=== PATIENT | male | born 1965 | race Caucasian/White ===

== ENCOUNTER 2019-09-14 13:58 | Inpatient (IN) ==
[2019-09-14] MEDS ORDERED: ASPIRIN CHEW 324 MG PO STA (14:13)
[2019-09-14 14:25] LABS: Basophils # (auto) 0.04 K/uL (0-0.2); Basophils % (auto) 0.6 %; Eosinophils # (auto) 0.08 K/uL (0-0.5); Eosinophils % (auto) 1.2 %; Hematocrit (blood only) 42.8 % (42-52); Hemoglobin 15.1 g/dL (14.0-18.0); Immature Granulocytes # (auto) 0.01 K/uL (0.00-0.02); Immature Granulocytes % (auto) 0.1 %; Lymphocytes # (auto) 2.11 K/uL (1.2-3.4); Lymphocytes % (auto) 31.3 %; Mean Corpuscular Hemoglobin 29.4 pg (25-34); Mean Corpuscular Hgb Conc 35.3 g/dL (32-36); Mean Corpuscular Volume 83.4 fL (80-100); Mean Platelet Volume 10.3 fL (7.4-10.4); Monocytes # (auto) 0.62 K/uL (0.11-0.59); Monocytes % (auto) 9.2 %; Neutrophils # (auto) 3.89 K/uL (1.4-6.5); Neutrophils % (auto) 57.6 %; Platelet Count 210 K/uL (130-400); RDW Coefficient of Variation 12.7 % (11.5-14.5); RDW Standard Deviation 38.4 fL (36.4-46.3); Red Blood Count 5.13 M/uL (4.7-6.1); White Blood Count 6.75 K/uL (4.8-10.8)
--- NOTE | 2019-09-14 14:29 | XRay Report ---
XR chest 1V portable CLINICAL HISTORY: Chest pain. COMPARISON STUDY: No previous studies for comparison. FINDINGS: Lung volumes are normal. There is no consolidation to suggest pneumonia. Minimal linear lef t basilar opacity suggests atelectasis. There is no pneumothorax or pleural effusion. Cardiac size is normal. Mediastinal contours are normal. There is no evidence for pulmonary edema. IMPRESSION: No acute cardiopulmonary findings. ACT 112: Negative or not required by law. Electronically signed by: Joseph Mcdonald M.D. 09/14/2019 2:28 PM
[2019-09-14 14:41] LABS: Alanine Aminotransferase 83 U/L (12-78); Albumin Level 4.3 gm/dl (3.4-5.0); Aspartate Aminotransferase 32 U/L (15-37); BUN Creatinine Ratio 14.3 (10-20); Blood Urea Nitrogen 14 mg/dl (7-18); Carbon Dioxide 23 mmol/L (21-32); Chloride 107 mmol/L (98-107); Creatinine Clr Calc Pharmacy 108.4 ml/min; Est GFR (African American) 101.1; Est GFR (Non-African American) 87.2; Glucose 104 mg/dl (70-99); INR 1.1 (0.9-1.1); Lipase 128 U/L (73-393); Potassium 3.6 mmol/L (3.5-5.1); Prothrombin Time 11.2 Seconds (9.0-12.0); Sodium 138 mmol/L (136-145)
--- NOTE | 2019-09-14 14:43 | Emergency Department Note ---
History of Present Illness General Chief complaint: Cardiac Assessment Stated complaint: ADNORMAL EKG Time Seen by Provider: 09/14/19 14:12 History of Present Illness Maximum Pain Intensity: 1 54-year-old male who presents to the emergency department with intermittent lower central chest discomfort that started approximately 11 to 12 days ago. The patient reports a significant history of reflux, and reported that his symptoms started by doing some heavy labor at home. The patient reports that the pain felt just like his typical reflux discomfort, with a burning sensation up through the center of the chest. The patient reports that he can usually drink water to suppress the acid. The patient was able to catch some relief while doing this. He denied any nausea, diaphoresis or shortness of breath during these episodes. Patient reports that he then had several days of no dis comfort, then the pain came back again 4 days ago while sitting in a chair at work. The patient reports that a coworker gave him some Prilosec which helped again with his discomfort, but has had intermittent similar pain since that time. The patient went to the [facility] office, but noticed a sign on the front door that he must wear a mask, so he went home. Yesterday he went to [place] to go out to lunch with his father. After lunch, he then went for a walk, and noticed similar central chest discomfort. He reported that the pain went away after the walk. He then went back to the office again today where an ECG was performed and was abnormal. The patient was sent to the emergency department for further evaluation. The patient reports that they did administer aspirin 325 mg in the office. He currently denies any significant discomfort. The patient reports a family history of heart disease with his mother having an PA in her 30s, and terminal grandfather dying of a heart attack. Home Medications Home Medications Medication Instructions Recorded Confirmed Type albuterol sulfate [ProAir HFA] 2 puff INHALATION Q4 PRN 09/14/19 09/14/19 History clindamycin phosphate [Clindagel] 1 applic TOPICAL DAILY PRN 09/14/19 09/14/19 History fluticasone propionate [Flovent 1 puff INHALATION WK 09/14/19 09/14/19 History HFA] ibuprofen 600 mg PO TID PRN 09/14/19 09/14/19 History omeprazole 20 mg PO DAILY 09/14/19 09/14/19 History Allergies Allergy/AdvReac Type Severity Reaction Status Date / Time No Known Allergies Allergy Unverified 09/14/19 15:56 Past Med/Surg History Medical History GERD (gastroesophageal reflux disease) Hyperlipidemia Obesity Surgical History No significant past surgical history Family History Grandfather (Maternal) Myocardial infarction, Onset Age: 50 Mother , 36 PA Myocardial infarction, Onset Age: 36 Social History Preferred Language: Upper Sorbian Communication Ability: Effective Contact Lens Edge Buffer Required: No Beliefs That Will Affect Care: None marital status: Single Current Living Situation: Alone current occupational status: employed Other Information That Helps Us Care for You: No Feels Safe at Home: Yes Safety Concerns: Feels Safe At This Time Smoking Status: Never smoker Hx Alcohol Use: Yes Alcohol Intake Frequency Comment: prior ETOH USE; last used 15 years ago Hx Substance Use: No Review of Systems 10 system review was performed and was negative except for pertinent positives and negatives as indicated in history of present illness Physical Exam Vital Signs Vital Signs - 24 hr 09/14/19 14:04 09/14/19 14:15 09/14/19 14:17 Temperature 37 C Temperature Source Oral Pulse Rate 108 H 89 100 H Pulse Rate [Apical] Pulse Rate from SpO2 Sensor 101 H Pulse Rhythm [Apical] Respiratory Rate 20 18 19 Respiratory Effort / Characteristics Non-Labored Respiratory Depth Normal Respiratory Pattern Regular Blood Pressure 163/99 H 164/87 H Blood Pressure [Right Arm] Blood Pressure Mean 120 121 Blood Pressure Mean [Right Arm] Blood Pressure Position Sitting Pulse Oximetry 97 97 Oxygen Delivery Method Room Air Sepsis Recent Fever Within 48 Hours No Sepsis New/Unexplained Change in Mental Status No Sepsis Action Taken by Nursing No Action Required 09/14/19 14:20 09/14/19 14:30 09/14/19 14:31 Temperature Temperature Source Pulse Rate 93 H 83 89 Pulse Rate [Apical] Pulse Rate from SpO2 Sensor 94 H 83 88 Pulse Rhythm [Apical] Respiratory Rate 23 14 14 Respiratory Effort / Characteristics Respiratory Depth Respiratory Pattern Blood Pressure 167/95 H Blood Pressure [Right Arm] Blood Pressure Mean 128 Blood Pressure Mean [Right Arm] Blood Pressure Position Pulse Oximetry 97 96 96 Oxygen Delivery Method Sepsis Recent Fever Within 48 Hours Sepsis New/Unexplained Change in Mental Status Sepsis Action Taken by Nursing 09/14/19 14:33 09/14/19 14:40 09/14/19 14:50 Temperature Temperature Source Pulse Rate 87 81 Pulse Rate [Apical] 70 Pulse Rate from SpO2 Sensor 87 83 Pulse Rhythm [Apical] Regular Respiratory Rate 18 14 15 Respiratory Effort / Characteristics Non-Labored Spontaneous Respiratory Depth Normal Respiratory Pattern Regular Blood Pressure Blood Pressure [Right Arm] 148/78 H Blood Pressure Mean Blood Pressure Mean [Right Arm] 101 Blood Pressure Position Pulse Oximetry 97 96 97 Oxygen Delivery Method Room Air Sepsis Recent Fever Within 48 Hours Sepsis New/Unexplained Change in Mental Status Sepsis Action Taken by Nursing 09/14/19 15:00 09/14/19 15:10 09/14/19 15:20 Temperature Temperature Source Pulse Rate 85 81 87 Pulse Rate [Apical] Pulse Rate from SpO2 Sensor 84 82 88 Pulse Rhythm [Apical] Respiratory Rate 30 H 17 18 Respiratory Effort / Characteristics Respiratory Depth Respiratory Pattern Blood Pressure 191/109 H Blood Pressure [Right Arm] Blood Pressure Mean 135 Blood Pressure Mean [Right Arm] Blood Pressure Position Pulse Oximetry 97 96 97 Oxygen Delivery Method Sepsis Recent Fever Within 48 Hours Sepsis New/Unexplained Change in Mental Status Sepsis Action Taken by Nursing 09/14/19 15:30 09/14/19 15:32 Temperature Temperature Source Pulse Rate 91 H 96 H Pulse Rate [Apical] Pulse Rate from SpO2 Sensor 96 H Pulse Rhythm [Apical] Respiratory Rate 13 25 H Respiratory Effort / Characteristics Respiratory Depth Respiratory Pattern Blood Pressure 179/92 H Blood Pressure [Right Arm] Blood Pressure Mean 114 Blood Pressure Mean [Right Arm] Blood Pressure Position Pulse Oximetry 98 Oxygen Delivery Method Sepsis Recent Fever Within 48 Hours Sepsis New/Unexplained Change in Mental Status Sepsis Action Taken by Nursing CONSTITUTIONAL: Healthy and well nourished. Patient does not appear in any a cute distress. HEENT: Normocephalic, atraumatic. No scleral icterus or conjunctival injection. NECK: Full active range of motion without discomfort. LYMPHATICS: No cervical chain adenopathy. RESPIRATORY: Clear to auscultation bilaterally with no wheezing, crackles, rhonchi or stridor. CARDIOVASCULAR: Regular rate and rhythm with no murmurs, rubs or gallops. GASTROINTESTINAL: Bowel sounds present in all quadrants. Soft and nontender to palpation without hepatosplenomegaly. MUSCULOSKELETAL: Full range of motion of all joints without discomfort. No peripheral edema. INTEGUMENTARY: No rash or other significant dermatologic conditions noted. HEMATOLOGIC: No ecchymosis or petechiae. PSYCHIATRIC: Positive affect. NEUROLOGIC: No focal neurologic deficits noted. Course Course Patient history and physical exam were performed. Nurse's notes were reviewed. Vital signs were reviewed, showing a mildly elevated blood pressure of 148/78. IV access was established, and labs were drawn. Portable chest x-ray was normal. An ECG in the department showed a normal sinus rhythm [address] depression in lateral leads. I also reviewed office ECGs showing the same. The patient did not have any discomfort while in the emergency department. Review of labs shows an elevated troponin of 0.489. Remaining labs were grossly normal. Findings were discussed with the patient, as well as Dr. Espinoza, ED attending physician, who recommended hospitalist consultation. [facility]. I did discuss the case with Dr. Duarte, [facility] blueprint machine operator, who recommended a hospitalist consultation. I ordered IV heparin as well. The patient continued to remain asymptomatic under my care. I also reviewed cardiac monitoring showing no acute changes while in the emergency department. The patient continued to deny any significant pain at the time [facility]. Administered Medications Heparin Sodium/Dextrose (Heparin Sodium/Dextrose) 25,000 units in 500 mls @ 32 mls/hr IV .[id number] [facility]; Protocol Stop: 10/14/19 15:59 Last Titration: 09/14/19 18:59 Dose: 1,600 units/hr, 32 mls/hr Documented by: [id number] Cosigned by: [id number] Titration: 09/14/19 17:36 Dose: 1,600 units/hr, 32 mls/hr Documented by: [id number] Cosigned by: [id number] Admin: 09/14/19 16:29 Dose: 1,600 units/hr, 32 mls/hr Documented by: [id number] Cosigned by: [id number] Metoprolol Tartrate (Lopressor) 25 mg PO Q6 [facility] Stop: 10/14/19 17:59 Last Admin: 09/14/19 17:12 Dose: 25 mg Documented by: [id number] Discontinued Medications Aspirin (Aspirin) 324 mg PO NOW STA Stop: 09/14/19 14:14 Last Admin: 09/14/19 14:33 Dose: Not Given Documented by: [id number] Heparin Sodium (Porcine) (Heparin Sodium (Porcine)) Confirm Administered Dose 5,000 units .ROUTE .STK-MED ONE Stop: 09/14/19 16:26 Last Admin: 09/14/19 16:29 Dose: 5,000 units Documented by: [id number] Cosigned by: [id number] Heparin Sodium/Dextrose () 1 ea IV NOW STA; Protocol Stop: 09/14/19 16:00 Last Admin: 09/14/19 17:35 Dose: Not Given Documented by: [id number] Potassium Chloride (Klor-Con M20) 40 meq PO NOW STA Stop: 09/14/19 16:17 Last Admin: 09/14/19 16:28 Dose: 40 meq Documented by: [id number] Critical Care Time Critical Care Time: Yes Total Critical Care Time: 35 I have personally spent greater than 30 minutes of critical care time in the direct management of this patient. This includes bedside care, interpretation of diagnostic studies, and testing, discussion with consultants, patient, and fa elyse members, and other required patient management activities. This 35 minutes is in excess of all separately billable procedures. The patient was also administered IV heparin due to myocardial infarction Medical Decision Making Medical Records Attestation: I reviewed the patient's medical records. Home Medications Current Medication List: was personally reviewed by me Laboratory Data Attestation: I reviewed the patient's lab results. Result diagrams: 09/14/19 14:17 09/14/19 14:17 Lab Results 09/14/19 09/14/19 09/14/19 Range/Units 14:17 14:17 14:17 WBC 6.75 (4.8-10.8) K/uL RBC 5.13 (4.7-6.1) M/uL Hgb 15.1 (14.0-18.0) g/dL Hct 42.8 (42-52) % MCV 83.4 (80-100) fL MCH 29.4 (25-34) pg MCHC 35.3 (32-36) g/dL RDW Std Deviation 38.4 (36.4-46.3) fL RDW Coeff of Sadaf 12.7 (11.5-14.5) % Plt Count 210 (130-400) K/uL MPV 10.3 (7.4-10.4) fL Immature Gran % (Auto) 0.1 % Neut % (Auto) 57.6 % Lymph % (Auto) 31.3 % [place] % (Auto) 9.2 % Eos % (Auto) 1.2 % Baso % (Auto) 0.6 % Immature Gran # (Auto) 0.01 (0.00-0.02) K/uL Neut # (Auto) 3.89 (1.4-6.5) K/uL Lymph # (Auto) 2.11 (1.2-3.4) K/uL [place] # (Auto) 0.62 H (0.11-0.59) K/uL Eos # (Auto) 0.08 (0-0.5) K/uL Baso # (Auto) 0.04 (0-0.2) K/uL PT 11.2 (9.0-12.0) Seconds INR 1.1 (0.9-1.1) APTT 27.0 (21.0-31.0) Seconds PTT Ratio 1.0 Sodium 138 (136-145) mmol/L Potassium 3.6 (3.5-5.1) mmol/L Chloride 107 (98-107) mmol/L Carbon Dioxide 23 (21-32) mmol/L Anion Gap 8.0 (3-11) BUN 14 (7-18) mg/dl Creatinine 0.99 (0.6-1.4) mg/dl Est Cr Clr Drug Dosing 108.4 ml/min Est GFR ( Amer) 101.1 Est GFR (Non-Af Amer) 87.2 BUN/Creatinine Ratio 14.3 (10-20) Glucose 104 H (70-99) mg/dl Calcium 9.0 (8.5-10.1) mg/dl Total Bilirubin 0.5 (0.2-1) mg/dl AST 32 (15-37) U/L ALT 83 H (12-78) U/L Alkaline Phosphatase 89 (45-117) U/L CK-MB (CK-2) 2.2 (0.5-3.6) ng/ml Troponin I 0.489 H* (0-0.045) ng/ml Total Protein 8.1 (6.4-8.2) gm/dl Albumin 4.3 (3.4-5.0) gm/dl Globulin 3.8 (2.5-4.0) gm/dl Albumin/Globulin Ratio 1.1 (0.9-2) Lipase 128 (73-393) U/L TSH (0.300-4.500) uIu/ml 09/14/19 Range/Units 14:17 WBC (4.8-10.8) K/uL RBC (4.7-6.1) M/uL Hgb (14.0-18.0) g/dL Hct (42-52) % MCV (80-100) fL MCH (25-34) pg MCHC (32-36) g/dL RDW Std Deviation (36.4-46.3) fL RDW Coeff of Sadaf (11.5-14.5) % Plt Count (130-400) K/uL MPV (7.4-10.4) fL Immature Gran % (Auto) % Neut % (Auto) % Lymph % (Auto) % [place] % (Auto) % Eos % (Auto) % Baso % (Auto) % Immature Gran # (Auto) (0.00-0.02) K/uL Neut # (Auto) (1.4-6.5) K/uL Lymph # (Auto) (1.2-3.4) K/uL [place] # (Auto) (0.11-0.59) K/uL Eos # (Auto) (0-0.5) K/uL Baso # (Auto) (0-0.2) K/uL PT (9.0-12.0) Seconds INR (0.9-1.1) APTT (21.0-31.0) Seconds PTT Ratio Sodium (136-145) mmol/L Potassium (3.5-5.1) mmol/L Chloride (98-107) mmol/L Carbon Dioxide (21-32) mmol/L Anion Gap (3-11) BUN (7-18) mg/dl Creatinine (0.6-1.4) mg/dl Est Cr Clr Drug Dosing ml/min Est GFR ( Amer) Est GFR (Non-Af Amer) BUN/Creatinine Ratio (10-20) Glucose (70-99) mg/dl Calcium (8.5-10.1) mg/dl Total Bilirubin (0.2-1) mg/dl AST (15-37) U/L ALT (12-78) U/L Alkaline Phosphatase (45-117) U/L CK-MB (CK-2) (0.5-3.6) ng/ml Troponin I (0-0.045) ng/ml Total Protein (6.4-8.2) gm/dl Albumin (3.4-5.0) gm/dl Globulin (2.5-4.0) gm/dl Albumin/Globulin Ratio (0.9-2) Lipase (73-393) U/L TSH 1.690 (0.300-4.500) uIu/ml Imaging Data Attestation: I personally reviewed and interpreted this imaging study as follows: My Impression: My interpretation of a portable chest x-ray does not show any consolidations or cardiac prominence. Radiologist report was reviewed. Radiologist's Impression: XR chest 1V portable CLINICAL HISTORY: Chest pain. COMPARISON STUDY: No previous studies for comparison. FINDINGS: Lung volumes are normal. There is no consolidation to suggest pneumonia. Minimal linear left basilar opacity suggests atelectasis. There is no pneumothorax or pleural effusion. Cardiac size is normal. Mediastinal contours are normal. There is no evidence for pulmonary edema. IMPRESSION: No acute cardiopulmonary findings. ECG Data Attestation: I personally reviewed and interpreted this ECG as follows: Indication: + chest pain Rate (beats per minute): 94 Rhythm: + normal sinus ECG Intervals/blocks: + Normal QRS, + Normal QT and + Normal TX ECG [place]: + Normal ECG ST segments: + ST depression (Lateral) Comparison ECG Date: from (Office ECG performed today at 12:35 PM) Change: no significant change Additional Comments: Comparison made with [facility] office ECG performed today at 12:35 PM, showing similar lateral ischemic changes Blood Pressure Blood Pressure Findings: Elevated blood pressure MDM Narrative Cardiac monitoring: An order was placed for continuous cardiac monitoring. The monitor shows a rate of 94 bpm with normal sinus rhythm and ischemic changes in lateral leads. 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 Patient presents to the emergency department with complaint of intermittent central chest pain. ECG does show lateral ischemic changes. Troponin is significantly elevated at 0.489, suggestive of non-STEMI. Chest x-ray does not show evidence for obvious cardiomegaly, lung consolidations or pneumothorax. Additional labs are not suggestive of any abdominal referred pain such as pancreatitis, cholecystitis or hepatitis. The patient does have a history of GERD which can also mimic this type of discomfort. I do not suspect aortic dissection. The patient does have an elevated heart score of 6, and the patient has negligible PERC score, and does not meet Well's criteria for risk of pulmonary embolism. Impression & Plan Non-ST elevated myocardial infarction (non-STEMI) Discharge Plan Visit Data *Final* Discharge Date/Time: 09/14/19 17:12 Chief Complaint: Cardiac Assessment Stated Complaint: ADNORMAL EKG ED Provider: Florin Espinoza ED Midlevel Provider: Yanick Whatley Discharge Problem: Non-ST elevated myocardial infarction (non-STEMI) Patient Disposition: Admitted As Inpatient Discharge Instructions Interventions: ED Discharge Assessment Last Done: 09/14/19 17:12
[2019-09-14 15:09] LABS: Albumin Globulin Ratio 1.1 (0.9-2); Alkaline Phosphatase 89 U/L (45-117); Bilirubin,Total 0.5 mg/dl (0.2-1); Creatine Kinase MB 2.2 ng/ml (0.5-3.6); Globulin 3.8 gm/dl (2.5-4.0); Total Protein 8.1 gm/dl (6.4-8.2); Troponin I 0.489 ng/ml (0-0.045)
[2019-09-14] MEDS ORDERED: POTASSIUM CHLORIDE 20 MEQ TABCR PO STA (16:16)
--- NOTE | 2019-09-14 16:16 | History & Physical Report ---
Date of Service September 14, 2019 Assessment & Plan (1) Non-ST elevated myocardial infarction (non-STEMI): This is a 54-year-old male with significant past medical history of asthma, GERD, obesity, hyperlipidemia, family history of premature cardiac who presents to ED with complaints of substernal chest pain x1.5 weeks. In ED patient remained hemodynamically stable, mildly hypertensive 148/78. Lab work notable for elevated troponin point 0.489 but otherwise CBC, CMP, lipase unremarkable. Chest x-ray without acute cardiopulmonary abnormality. EKG revealed normal sinus rhythm with ST depression in leads II, V5 and V6. He did receive ASA 325mg prior to arrival. He is chest pain free in ED. admit to PCU continue IV Heparin cycle troponins, repeat ecg obtain echo fasting lipid panel, a1c in a.m. consult cardiology obtain covid 19test due to possibility of procedure given NSTEMI initiate asa 81mg daily K 3.6 - give 40meq KCL (2) Elevated blood pressure reading: blood pressure elevated in ED monitor, no prior dx of HTN (3) GERD (gastroesophageal reflux disease): continue PPI daily (4) Obesity: BMI 34.8 diet/life style modifications recommended maltster consulted (5) DVT prophylaxis: Heparin Disposition: admit to PCU Follow up: PCP Dr. Barclay upon discharge Pt was seen and examined in collaboration with Dr. Meeks, please see addendum History of Present Illness Chief Complaint: Chest pain x 1.5 weeks. Primary Care Provider: Dr. Barclay This is a 54-year-old male with significant past medical history of asthma, GERD, obesity, hyperlipidemia, family history of premature cardiac who presents to ED with complaints of substernal chest pain x1.5 weeks. Approximately a week and a half ago he began noticing burning substernal chest pain that would worsen with exertion. He specifically noticed when bending over, out doing yard work and also when out walking. These episodes are also associated with GERD. He does have prior history of GERD in which he takes Pepcid as needed. This burning sensation feels different than his reflux. Pain would worsen with exertion and resolve with rest. No radiation of sx. He did try taking omeprazole 20 mg daily for the past 4 days without significant improvement. His last episode of chest pain was this morning when walking upstairs to PCP office. While in PCP office he underwent EKG which revealed concerning changes and therefore he was referred to ED. He was given full- strength aspirin while in office. Chest pain subsided when he was resting in office. Pain is not affected with certain movements, not made worse with deep breathing, is not associated with shortness of breath, nausea or diaphoresis. He denies any recent illness, fever, chills, sweats, lightheadedness, dizziness, syncope, COLLINS, shortness breath, hemoptysis, cough, nausea, vomiting, abdominal pain, change in bowel or urinary habits. He denies any prior history of cardiac disease but notes mother at age 36 of NC in paternal grandfather NC in 50s. He denies any tobacco, nicotine, alcohol or drug use. He does have prior history of hyperlipidemia but has not been prescribed medication. He also elicits elevated blood pressure when in PCPs office, but feels related to "nervousness." Denies exposure to covid-19, change in taste/smell. In ED patient remained hemodynamically stable, mildly hypertensive 148/78. Lab work notable for elevated troponin point 0.489 but otherwise CBC, CMP, lipase unremarkable. Chest x-ray without acute cardiopulmonary abnormality. EKG revealed normal sinus rhythm with ST depression in leads II, V5 and V6. He did receive ASA 325mg prior to arrival. He is chest pain free in ED. Allergies Allergy/AdvReac Type Severity Reaction Status Date / Time No Known Allergies Allergy Unverified 09/14/19 15:56 Home Medications Home Medications Medication Instructions Recorded Confirmed Type albuterol sulfate [ProAir HFA] 2 puff INHALATION Q4 PRN 09/14/19 09/14/19 History clindamycin phosphate [Clindagel] 1 applic TOPICAL DAILY PRN 09/14/19 09/14/19 History fluticasone propionate [Flovent 1 puff INHALATION WK 09/14/19 09/14/19 History HFA] ibuprofen 600 mg PO TID PRN 09/14/19 09/14/19 History omeprazole 20 mg PO DAILY 09/14/19 09/14/19 History Past Med/Surg History Medical History GERD (gastroesophageal reflux disease) Hyperlipidemia Obesity Surgical History No significant past surgical history Family History Grandfather (Maternal) Myocardial infarction, Onset Age: 50 Mother , 36 [place] Myocardial infarction, Onset Age: 36 Social History Preferred Language: Cypriot Communication Ability: Effective Maintenance Helper Required: No Beliefs That Will Affect Care: None marital status: Single Current Living Situation: Alone current occupational status: employed Other Information That Helps Us Care for You: No Feels Safe at Home: Yes Safety Concerns: Feels Safe At This Time Smoking Status: Never smoker Hx Alcohol Use: Yes Alcohol Intake Frequency Comment: prior ETOH USE; last used 15 years ago Hx Substance Use: No Review of Systems Review of Systems: All systems reviewed & are unremarkable except as noted in HPI & below Physical Exam Physical Exam: Constitutional: WD/WN, obese, male, vitals as above, NAD, sitting up in bed, pleasant, conversing easily Head: Normocephalic, Atraumatic Eyes: PERRL, conjunctivae normal, anicteric sclerae ENMT: external ear and nose normal, oropharynx normal Neck: trachea midline, no thyromegaly normal visual inspection Respiratory: normal respiratory effort, lungs clear to auscultation, no wheeze, rales, rhonchi. Normal insp/exp effort, no accessory muscle use Cardiovascular: RRR, no murmur, no edema Vessels: no JVD or carotid bruit Chest: normal inspection of chest, no pain to palpation of chest wall Abdomen: Protuberant abdomen, normal bowel sounds, soft, nontender, no hepatosplenomegaly Musculoskeletal: no cyanosis or clubbing, extremities motor strength 5/5 Skin: no rashes, warm and dry normal turgor Neurologic: PERRL, EOMI, accommodation nl, no face palsy, no dysarthria CN's II-XI intact bilaterally and moves all extremities Psychiatric: A+Ox3, euthymic affect Lymphatic: no cervical or axillary lymphadenopathy : deferred Results & Data Results & Data ([facility]) Vital Signs (Past 12 Hours) Vital Signs Temp Pulse Pulse Resp BP BP Pulse Ox 09/14/19 14:33 70 18 148/78 H 97 09/14/19 14:04 37 C 108 H 20 163/99 H 97 Laboratory Results Short CBC 09/14/19 Range/Units 14:17 WBC 6.75 (4.8-10.8) K/uL Hgb 15.1 (14.0-18.0) g/dL Hct 42.8 (42-52) % Plt Count 210 (130-400) K/uL BMP 09/14/19 14:17 Sodium 138 Potassium 3.6 Chloride 107 Carbon Dioxide 23 BUN 14 Creatinine 0.99 Glucose 104 H Calcium 9.0 Cardiac Enzymes 09/14/19 Range/Units 14:17 CK-MB (CK-2) 2.2 (0.5-3.6) ng/ml Troponin I 0.489 H* (0-0.045) ng/ml Liver Function 09/14/19 Range/Units 14:17 Total Bilirubin 0.5 (0.2-1) mg/dl AST 32 (15-37) U/L ALT 83 H (12-78) U/L Alkaline Phosphatase 89 (45-117) U/L Albumin 4.3 (3.4-5.0) gm/dl Diagnostic Findings CXR: IMPRESSION: No acute cardiopulmonary findings. Medications Administered Discontinued Medications Aspirin (Aspirin) 324 mg PO NOW STA Stop: 09/14/19 14:14 Last Admin: 09/14/19 14:33 Dose: Not Given Documented by: [id number] ECG Rate (beats per minute): 94 Rhythm: normal sinus Findings: + ST depression (II, V5, V6) Code Status & VTE Plan Code Status Full Code VTE Prophylaxis Plan VTE Prophylaxis will be ordered: Yes Supervising Physician Co-Signing Physician Notes Patient is a 54-year-old male with history of asthma, GERD, obesity and other medical problems presents with history of substernal chest pain which she describes as burning sensation. He noticed having chest pain intermittently for the past 10 days. He initially thought it to be secondary to acid reflux and self started on omeprazole and Pepcid which temporarily helped. He states having a long history of acid reflux since at least 10 years and never had an endoscopy. Denies any dysphagia, odynophagia. He was evaluated by his PCP today for chest pain and was noted to have an abnormal EKG and was sent to ED for further evaluation. He received full strength aspirin while in PCPs office. Please review HPI for complete details of presentation. EKG showed ST depression concerning for ischemia. Troponin is elevated at 0.48. He was started on IV heparin while in ED. On exam patient is obese, no apparent distress, normocephalic atraumatic, lungs are clear to auscultation, normal breath sounds, S1-S2, tachycardia, no murmur, no pedal edema, abdomen soft nontender, normal bowel sounds, grossly no focal neurological deficits. Patient is admitted for management of chest pain rule out ACS. likely NSTEMI. Started on aspirin, continue IV heparin. Will check lipid panel, A1c. Trend cardiac enzymes and check resting echo. Cardiology consulted. Also consider endoscopy likely as outpatient given long history of GERD. Started on PPI. Patient denies any weight loss, blood in stools, melena. I personally reviewed the record. Patient is interviewed and examined at bedside. Patient's care is coordinated with Lyndsey Aguila PA-C. Please refer to the documentation above for details of patient's presentation and for discussion of other issues.
[2019-09-14] MEDS ORDERED: HEPARIN SOD 5,000 UNIT/0.5 ML VIAL ONE (16:25)
[2019-09-14] MEDS: HEPARIN SODIUM/DEXTROSE 25,000 UNITS/500 ML BAG IV SCH (16:29)
[2019-09-14] MEDS: METOPROLOL TARTRATE 25 MG TAB PO SCH (17:12)
--- NOTE | 2019-09-14 17:15 | Electrocardiogram Report ---
Test Reason : Blood Pressure : / mmHG Vent. Rate : 094 BPM Atrial Rate : 094 BPM P-R Int : 176 ms QRS Dur : 090 ms QT Int : 364 ms P-R-T Axes : 055 006 038 degrees QTc Int : 455 ms Normal sinus rhythm ST segement changes concerning for ischemia Abnormal ECG No previous ECGs available Confirmed by Jose Alfredo Puente ([id number]) on 09/14/2019 5:15:24 PM Referred By: ED Confirmed By:Estiven Puente
[2019-09-14] MEDS ORDERED: MAGNESIUM HYDROXIDE SUSP 30 ML UDC PO PRN (17:45)
[2019-09-14] MEDS ORDERED: ONDANSETRON INJ 2 MG/ML 2 ML VIAL IV PRN (17:45)
[2019-09-14] MEDS ORDERED: ALUMINUM/MAGNESIUM SUSP 30 ML UDC PO PRN (17:45)
[2019-09-14] MEDS ORDERED: ACETAMINOPHEN 325 MG TAB PO PRN (17:45)
[2019-09-14] MEDS ORDERED: NITROGLYCERIN SL 0.4 MG/TAB TAB SL PRN (17:45)
--- NOTE | 2019-09-14 17:47 | Cardiology Progress Note ---
Date of Service September 14, 2019 Assessment & Plan (1) Non-ST elevated myocardial infarction (non-STEMI): (2) Hyperlipidemia: (3) Family history of premature CAD: Given his description of the chest discomfort he was experiencing I am very concerned that he has been suffering from unstable angina especially that the chest discomfort is now occurring at rest. His EKG is remarkably abnormal with an old anterior infarct pattern along with ischemic changes in the lateral leads. His initial troponin is mildly elevated as well. 2D echocardiogram performed at the bedside preliminary review shows no segmental wall motion abnormalities. I believe the most prudent course of action would be to proceed directly to cardiac catheterization for direct visualization of his coronary anatomy. The benefits, risks and alternatives were discussed with the patient at great lengths and he agrees that he would like to proceed. He will be made n.p.o. after midnight. Heparin has been started in emergency department and should be continued. He is already received aspirin and I started him on metoprolol now as well. Should he develop any chest pain overnight that is not amenable to medical intervention then urgent cardiac catheterization may be necessary. Subjective It was my pleasure to see Mr. Palacios in consultation today September 14, 2019. He is a very pleasant 54-year-old gentleman who does not seek routine medical care. He presents to [facility] emergency department on 09/14/2019 at the urging of Dr. Keane of [facility] internal medicine for chest pain. He states that approximately a week and a half ago he was doing yard work and he noticed that he developed some chest discomfort he described as a burning sensation down the center of his chest that he wrote off his indigestion. He states that the discomfort lasted the entire time he was active doing yard work and then when he rested it resolved. He denied any associated symptoms with. Then throughout the next week he notes that every time he would exert himself he would again get the chest discomfort. He kept writing off his indigestion unfortunately did not respond to indigestion treatment as an outpatient with [facility]. It progressed to the point where he had an episode of chest discomfort at rest yesterday morning that was rather severe. This episode made him feel very tired and weak and he finally went into see [facility] internal medicine in the walk-in clinic. An EKG was performed which showed questionable old anterior infarct along with questionable lateral ischemia and he was directed to the emergency department. Currently he is chest pain-free and states his last discomfort was this morning when he walked up the stairs in his house. He denies any previous similar episodes. Of note the patient's mother at age 35 of a fatal myocardial infarction. Review of Systems Review of Systems: All systems reviewed & are unremarkable except as noted in HPI & below Physical Exam Physical Exam: General: Awake, alert and oriented x 3. No acute distress. HEENT: Normocephalic, atraumatic. Pupils equal, round and reactive to light and accommodation. Extraocular muscles are intact. Anicteric sclera. Moist mucous membranes. Neck: No JVD. No bruit. Cardiovascular: Regular. Positive S-4. Normal S-1 and S-2. No S-3. No murmurs or rubs. Pulmonary: Clear to auscultation B/L. No rales, rhonchi or wheezing Abdomen: Bowel sounds x 4, soft. No rebound, guarding or tenderness. No organomegaly. Extremities: No clubbing, cyanosis or edema. +2 pedal pulses bilaterally. Skin: Warm and dry. Results & Data Vital Signs (Past 12 Hours) Vital Signs Temp Pulse Pulse Resp BP BP Pulse Ox 09/14/19 14:33 70 18 148/78 H 97 09/14/19 14:04 37 C 108 H 20 163/99 H 97
[2019-09-14] MEDS ORDERED: ALBUTEROL HFA 8 GM INHALER INH PRN (17:49)
[2019-09-15 00:06] LABS: Partial Thromboplastin Ratio 2.5
[2019-09-15 00:08] LABS: Partial Thromboplastin Time 68.6 Seconds (21.0-31.0)
[2019-09-15] MEDS: METOPROLOL TARTRATE 25 MG TAB PO SCH ×5 (01:26→23:58)
[2019-09-15 01:58] LABS: Hematocrit (blood only) 44.5 % (42-52); Hemoglobin 14.8 g/dL (14.0-18.0); Mean Corpuscular Hemoglobin 28.3 pg (25-34); Mean Corpuscular Hgb Conc 33.3 g/dL (32-36); Mean Corpuscular Volume 85.1 fL (80-100); Mean Platelet Volume 10.3 fL (7.4-10.4); Platelet Count 220 K/uL (130-400); RDW Coefficient of Variation 12.8 % (11.5-14.5); RDW Standard Deviation 39.7 fL (36.4-46.3); Red Blood Count 5.23 M/uL (4.7-6.1); White Blood Count 9.71 K/uL (4.8-10.8)
[2019-09-15 02:18] LABS: Albumin Level 3.8 gm/dl (3.4-5.0); BUN Creatinine Ratio 13.7 (10-20); Creatinine Clr Calc Pharmacy 104.2 ml/min; Est GFR (African American) 96.3; Est GFR (Non-African American) 83.1; Potassium 3.8 mmol/L (3.5-5.1)
[2019-09-15 02:21] LABS: Albumin Globulin Ratio 1.1 (0.9-2); Bilirubin,Total 0.4 mg/dl (0.2-1); Globulin 3.4 gm/dl (2.5-4.0); Total Protein 7.2 gm/dl (6.4-8.2)
[2019-09-15 05:55] LABS: Estimated Average Glucose 117 mg/dl; Hemoglobin A1C 5.7 % (4.5-5.6)
[2019-09-15 06:19] LABS: Partial Thromboplastin Ratio 2.3
[2019-09-15] MEDS ORDERED: NiCARDipine HCL INJ 2.5 MG/ML 10 ML AMP ONE (09:22)
[2019-09-15] MEDS ORDERED: fentaNYL citrate 100 MCG/2 ML VIAL ONE (09:22)
[2019-09-15] MEDS ORDERED: HEPARIN (PORCINE) 1000 UNIT/ML 10 ML (CATH LAB USE ONLY) ONE (09:23)
[2019-09-15] MEDS ORDERED: NITROGLYCERIN/D5W 100MCG/ML 20ML SYR ONE (09:23)
[2019-09-15] MEDS ORDERED: MIDAZOLAM HCL 1 MG/ML 2ML VIAL ONE (09:23)
[2019-09-15] MEDS ORDERED: CLOPIDOGREL BISULFATE 300 MG TAB ONE (09:51)
[2019-09-15] MEDS ORDERED: ATROPINE SULFATE 0.1 MG/ML 10ML SYR IV ONE (09:53)
--- NOTE | 2019-09-15 09:58 | Cardiac Catheterization ---
Date of Service September 15, 2019 Cardiac Cath Report Cardiac Cath Report Procedure: 1. Coronary angiography History: This is a 54-year-old male patient with minimal past medical history who presented with classic exertional angina and a non-STEMI. Procedure summary: After informed consent was obtained the patient was taken to the cardiac catheterization lab where access was obtained using a retrograde cylinder technique from the right radial artery. Preformed 5 Welsh diagnostic catheters were utilized for the coronary angiography. Following the procedure the patient underwent coronary intervention. ACC data: Start time 9:27 AM End time 9:45 AM Opening aortic pressure 143/87 Closing aortic pressure 149/94 Left ventricular pressurevalve not crossed Sedation 1 mg intravenous Versed IV fluid 50 cc normal saline Contrast 80 cc Optiray Fluoroscopy time 3.2 minutes Radiation 970 mGy DAP 70.87 Right dominant system AUC score 9 Coronary angiography: Selective injections of the left coronary artery revealed the left main trunk to be patent. There is evidence of calcium in the proximal LAD the LAD system has moderate diffuse disease especially in the mid segment just after the takeoff of the first septal compensation consulting manager. There is a high ramus branch from both the LAD and left circumflex arteries which have diffuse disease proximally. The LAD gives off an additional 2 small diagonal arteries which are patent. The left circumflex artery gives off a small marginal branch after the ramus. It then gives off a second large marginal branch supplying most of the lateral myocardium and apex. The left circumflex artery has mild diffuse disease. Selective injections of the right coronary artery reveal it to be dominant. Before the takeoff of the posterior descending artery there is a subtotal occlusion. Impression: The patient has diffuse nonobstructive coronary disease of the left coronary system. There is a subtotal stenosis of the right coronary artery before the takeoff of the PDA. Recommendations: Recommendations are for coronary intervention and stent placement right coronary artery.
--- NOTE | 2019-09-15 10:23 | Post Anesthesia Assessment ---
Date of Service September 15, 2019 Post Sedation Assessment Vital Signs Temp Pulse Pulse Resp BP BP BP 09/15/19 07:15 98.2 F 70 19 174/94 H 149/90 H 09/15/19 03:45 98.8 F 58 L 16 143/84 H 09/15/19 00:28 98.1 F 65 18 150/96 H 09/14/19 23:00 62 09/14/19 19:28 99.3 F 76 16 137/83 09/14/19 17:41 98.8 F 86 16 168/92 H 09/14/19 17:40 86 09/14/19 17:35 88 09/14/19 17:20 149 H 09/14/19 17:10 88 19 09/14/19 17:00 90 17 179/106 H 09/14/19 16:50 91 H 18 09/14/19 16:40 101 H 19 09/14/19 16:30 20 183/100 H 09/14/19 16:20 44 H 09/14/19 16:10 24 09/14/19 16:00 31 H 196/122 H 09/14/19 15:50 96 H 22 09/14/19 15:40 93 H 14 09/14/19 15:32 96 H 25 H 179/92 H 09/14/19 15:30 91 H 13 09/14/19 15:20 87 18 09/14/19 15:10 81 17 09/14/19 15:00 85 30 H 191/109 H 09/14/19 14:50 81 15 09/14/19 14:40 87 14 09/14/19 14:33 70 18 148/78 H 09/14/19 14:31 89 14 09/14/19 14:30 83 14 167/95 H 09/14/19 14:20 93 H 23 09/14/19 14:17 100 H 19 164/87 H 09/14/19 14:15 89 18 09/14/19 14:04 98.6 F 108 H 20 163/99 H Pulse Ox 09/15/19 07:15 98 09/15/19 03:45 98 09/15/19 00:28 98 09/14/19 23:00 09/14/19 19:28 96 09/14/19 17:41 98 09/14/19 17:40 09/14/19 17:35 09/14/19 17:20 09/14/19 17:10 97 09/14/19 17:00 98 09/14/19 16:50 99 09/14/19 16:40 99 09/14/19 16:30 09/14/19 16:20 97 09/14/19 16:10 97 09/14/19 16:00 98 09/14/19 15:50 98 09/14/19 15:40 98 09/14/19 15:32 98 09/14/19 15:30 09/14/19 15:20 97 09/14/19 15:10 96 09/14/19 15:00 97 09/14/19 14:50 97 09/14/19 14:40 96 09/14/19 14:33 97 09/14/19 14:31 96 09/14/19 14:30 96 09/14/19 14:20 97 09/14/19 14:17 97 09/14/19 14:15 09/14/19 14:04 97 Recovery Score Activity: Moves 4 extremities Respiration: Deep Breath/Cough Circulation: +/-20% PreAnes Value Consciousness: Fully Awake Oxygen Saturation: O2 needed for >90% Discharge Sedation Level of Care: Fast Track Phase II Post Sedation Plan On clinical assessment, the patient appears to have tolerated the sedation without complications. Patient is recovering as anticipated. Patient will continue to be monitored by nursing and may be discharged when sedation discharge criteria are met per below protocol. Upon Completions of procedure up to 15 minutes continue every 5 minute vital signs and the P.A.R. score; then discharge to a Phase I or Fast Track to Phase II per the following guidelines: * Discharge Patient to appropriate Phase II area if PAR is 8 or greater or return to pre- procedure baseline. The post - procedure orders will be as directed. * If PAR score is less than 8 or not return to pre-procedure baseline then patient will follow Phase I monitoring till PAR is reached for Phase II. The Phase I may be done in procedure room or may call to secure a Phase I area. * If naloxone or flumazenil are used for reversal, hold in Phase I for continued monitoring from when last reversal dose was given for a minimum of 60 minutes or longer pending the nurse and/or physician discretion of patient condition before discharge to Phase II. Please call the Sedation Physician to re-evaluate and complete post-note for discharge to Phase II area. Do NOT discharge from procedure sedation or Phase 1 until post- sedation evaluation note is complete by procedure /sedation MD Sedation Discharge Instructions to be given to the patient at discharge to home.
--- NOTE | 2019-09-15 10:32 | Cardiac Catheterization ---
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 Cardiac Status Clinical evaluation leading to the procedure CAD Presenation: Non STEMI Anginal Classification: CCS IV Heart Failure: No Cardiogenic Shock within 24 Hours: No Cardiac Arrest within 24 Hours: No Imaging Studies Past 6 Months: Yes Stress Studies Past 6 Months: No Diagnostic Physicians Name: Jose Alfredo Carlson MD Closure Device Percutaneous Entry Location: Radial Closure Device: Radial Band Recommendations: PCI without planned CABG PCI Indication: PCI for high risk Non-EUNICE Lesion Segment Name: R-PAV Culprit Artery: Yes Stenosis Prior to Rx (%): 95 Chronic Total Occlusion: No IVUS: No FFR: No Pre-Procedure GRETEL Flow: 2 Previously Treated Lesion: No Lesion Complexity: Non-High/Non-C Lesion Length (mm): 15 Thrombus Present: No Bifurcation Lesion: Yes Guidewire Across Lesion: Stenosis Post-Procedure (%): 0 Post-Procedure GRETEL Flow: 3 Devices(s) Deployed: Yes Yes Lesion #2 Segment Name: R PLB Culprit Artery: No Stenosis Prior to Rx (%): 70 Chronic Total Occlusion: No IVUS: No FFR: No Pre-Procedure GRETEL Flow: 3 Previously Treated Lesion: No Lesion Complexity: Non-High/Non-C Lesion Length (mm): 10 Thrombus Present: No Bifurcation Lesion: No Guidewire Across Lesion: Yes Post-Procedure GRETEL Flow: 3 Devices(s) Deployed: Yes Intraprocedure Events Significant Disection: No Perforation: No Cardiac Cath Procedure Full Procedure Date September 15, 2019 Pre-Procedure Diagnosis Pre-Procedure Diagnosis: Non STEMI AUC Score AUC Score: 8 Post-Procedure Diagnosis Post-Procedure Diagnosis: Severe CAD and Successful PCI Procedure(s) Performed Procedure(s) Performed: Drug Eluting Stent Metal Cutter Jose Alfredo Carlson MD Radiator Core Tester(s) Santiago Estimated Blood Loss Estimated Blood Loss: 10 Medication(s) Medication(s): Clopidogrel, Fentanyl, Heparin, Lidocaine 1%, Nicardipine, Nitroglycerin and Versed Summary of Findings Indication: Acute coronary syndrome Access: 6 Fr right radial artery Catheters: JR4 guide Findings: For full details of patient's coronary angiography please see cath report dictated by Dr. Landers. Briefly, patient found to have severe single vessel disease involving his distal RCA, right posterior AV branch into large right PLB. Decision to proceed with PCI. -- PCI -- Antithrombotic therapy: Heparin, clopidogrel Procedure: RCA cannulated with JR4 guide Compensation Analyst 50 wire passed across lesion into distal vessel Right PAV lesion predilated with 2.0 compliant balloon Dilated lesion stented with 2.5 x 18 mm [place] drug-eluting stent Stent post-dilated with 2.75 noncompliant balloon IC vasodilators administered for spasm Severe residual stenosis in proximal right PLB remained. Proximal right PLB stented with 2.25 x 12 mm [place] Stent postdilated with stent balloon Post procedure GRETEL 3 flow, stents well expanded with minimal residual stenosis and no apparent cardiac complications. Arterial Closure: TR band Summary: 1. Successful PCI of right posterior AV branch and distal right PLB with 2 nonoverlapping drug-eluting stents (2.5 x 18, 2.25 x 12 Tobias). Recommendations: To PCU for continued monitoring Loaded with clopidogrel 600 mg in Plastic Welding Machine Operator Continue dual-antiplatelet therapy for at least 1 year Continue statin, and ASCVD risk factor modification Consult cardiac Rehab Hemodynamics Rest Ao:: 140/75/134 Final Ao: 129/74/102 LV: -- Recommendations Recommendations: PCI without planned CABG Specimens Specimens: None Radiation Exposure (mGy) 2777 Contrast (mls) 180 Fluids (cc crystalloids) Fluids (cc crystalloids): 95 Drains Drains: None Anesthesia moderate Procedural Complication(s) None Disposition PCU I attest to the content of the Intraoperative Record and any orders documented therein. Any exceptions are noted below. [facility] Card Cath Procedure Codes Moderate Sedation Procedure 1: Sedation/Anesthesia: 93690 Mod Sedation by a different physician ;Init15 Min Child Age 5&Up Procedure 2: Sedation/Anesthesia: 64994 Mod Sedation by a different physician;Ea Additional 15 Minutes Stenting Procedure 1: Cardiovascular Stent Procedures: 66238 Perc transcatheter placement of intracoronary stent(s), with ang PG Care Time/CCT Total # of Minutes Spent Total Time Spent with Patient: Total time spent is greater than 50% in coordination of care (as documented) at patient's floor/unit and/or counseling patient:
[2019-09-15] MEDS ORDERED: SODIUM CHLORIDE 0.9% 1000ML 1,000 ML IV SCH (10:45)
[2019-09-15] MEDS: ASPIRIN 81 MG ECTAB PO SCH (11:13)
[2019-09-15] MEDS: PANTOprazole 40 MG TAB PO SCH (11:13)
[2019-09-15] MEDS: HEPARIN SODIUM/DEXTROSE 25,000 UNITS/500 ML BAG IV SCH (12:58)
--- NOTE | 2019-09-15 15:32 | Hospitalist Progress Note ---
Date of Service September 15, 2019 Assessment & Plan (1) Non-ST elevated myocardial infarction (non-STEMI): Present to the ER from PCP office for substernal chest pain EKG revealed normal sinus rhythm with ST depression in leads II, V5 and V6. Received ASA 325 mg prior to arrival Troponin on admission 0.489, then peaked to 0.570 Starting on heparin drip ECHO showed no segmental LV wall motion abnormality with EF 55 to 60% Cardiology on board S/P cardiac cath showed a subtotal stenosis of the right coronary artery before the takeoff of the PDA. Successful PCI of right posterior AV branch and distal right PLB with 2 nonoverlapping drug-eluting stents (2.5 x 18, 2.25 x 12 Tobias) by Dr Carlson Heparin drip discontinued Continue dual-antiplatelet therapy for at least 1 year Continue statin and metoprolol referral to cardiac Rehab on discharge Continue monitor in tele (2) Elevated blood pressure reading: BP improved Continue Metoprolol Continue Monitor BP (3) GERD (gastroesophageal reflux disease): continue PPI daily (4) Obesity: BMI 34.8 Counseling on diet and exercise (5) DVT prophylaxis: Heparin IV drip discontinued Disposition: Continue monitor in tele Admission and Anticipated Discharge Date Admission Date: September 14, 2019 Subjective Pt was seen and examined Lying in bed with no distress Pt said that he feels fine Currently denies any chest pain, palpitation, dizziness and SOB Physical Exam Physical Exam: General- No acute distress Head- atraumatic Eyes- PERRL, EOMI, ENT- oropharynx clear Neck- supple, no JVD Lungs- clear to auscultation Heart- regular rhythm; no murmur Abdomen- normal bowel sounds, soft, nontender Extremities- no calf tenderness, no hematoma in right wrist Neuro- alert, oriented x 3; PERRL, EOMI; no facial palsy; no dysarthria Skin- warm & dry Results & Data Results & Data ([facility]) Vital Signs (Past 12 Hours) Vital Signs Temp Pulse Pulse Pulse Resp BP BP 09/15/19 11:20 70 20 143/85 H 09/15/19 11:05 63 20 127/99 09/15/19 10:50 36.6 C 70 56 L 18 136/82 09/15/19 10:40 63 138/70 09/15/19 10:25 65 138/64 09/15/19 07:15 36.8 C 70 19 174/94 H 149/90 H 09/15/19 03:45 37.1 C 58 L 16 143/84 H Pulse Ox 09/15/19 11:20 09/15/19 11:05 97 09/15/19 10:50 97 09/15/19 10:40 96 09/15/19 10:25 96 09/15/19 07:15 98 09/15/19 03:45 98
--- NOTE | 2019-09-15 16:18 | Cardiology Progress Note ---
Date of Service September 15, 2019 Assessment & Plan (1) Non-ST elevated myocardial infarction (non-STEMI): (2) Hyperlipidemia: (3) Family history of premature CAD: Cardiac catheterization revealed diffuse nonobstructive coronary disease of the left coronary system and a subtotal stenosis of the right coronary artery before the takeoff of the PDA. He underwent successful successful PCI of right posterior AV branch and distal right PLB with 2 nonoverlapping drug-eluting stents (2.5 x 18, 2.25 x 12 Tobias). Medications reviewed. He will require lifelong aspirin 81 mg daily as well as statin therapy. And I will start him on atorvastatin now. Need for Plavix for 1 year reviewed as well. We will follow pressures overnight to see if any antihypertensives are necessary. Continue to monitor on telemetry Likely discharge home in the a.m. My office will call to arrange follow-up with me in 1 month. Subjective Patient seen and examined, chart reviewed. States he has been feeling great ever since intervention. He did have chest pain reproduced with inflation of the balloon but no further discomfort since catheterization. Telemetry reviewed: Normal sinus rhythm without arrhythmia or significant ectopy. Review of Systems Review of Systems: All systems reviewed & are unremarkable except as noted in HPI & below Physical Exam Physical Exam: General: Awake, alert and oriented x 3. No acute distress. HEENT: Normocephalic, atraumatic. Pupils equal, round and reactive to light and accommodation. Extraocular muscles are intact. Anicteric sclera. Moist mucous membranes. Neck: No JVD. No bruit. Cardiovascular: Regular. Positive S-4. Normal S-1 and S-2. No S-3. No murmurs or rubs. Pulmonary: Clear to auscultation B/L. No rales, rhonchi or wheezing Abdomen: Bowel sounds x 4, soft. No rebound, guarding or tenderness. No organomegaly. Extremities: No clubbing, cyanosis or edema. +2 pedal pulses bilaterally. Skin: Warm and dry. Results & Data Vital Signs (Past 12 Hours) Vital Signs Temp Pulse Pulse Pulse Resp BP BP 09/15/19 16:06 36.8 C 58 L 18 135/89 09/15/19 11:20 70 20 143/85 H 09/15/19 11:05 63 20 127/99 09/15/19 10:50 36.6 C 70 56 L 18 136/82 09/15/19 10:40 63 138/70 09/15/19 10:25 65 138/64 09/15/19 08:00 69 09/15/19 07:15 36.8 C 70 19 174/94 H 149/90 H Pulse Ox 09/15/19 16:06 97 09/15/19 11:20 09/15/19 11:05 97 09/15/19 10:50 97 09/15/19 10:40 96 09/15/19 10:25 96 09/15/19 08:00 09/15/19 07:15 98
--- NOTE | 2019-09-15 19:12 | Electrocardiogram Report ---
Test Reason : Blood Pressure : / mmHG Vent. Rate : 089 BPM Atrial Rate : 089 BPM P-R Int : 178 ms QRS Dur : 088 ms QT Int : 378 ms P-R-T Axes : 019 -04 018 degrees QTc Int : 459 ms Normal sinus rhythm Nonspecific ST abnormality Abnormal ECG When compared with ECG of 14-SEP-2019 14:12, (unconfirmed) No significant change was found Confirmed by Jose Alfredo Puente ([id number]) on 09/15/2019 7:11:51 PM Referred By: REFERRED SELF Confirmed By:Estiven Puente
--- NOTE | 2019-09-15 19:19 | Electrocardiogram Report ---
Test Reason : Blood Pressure : / mmHG Vent. Rate : 076 BPM Atrial Rate : 076 BPM P-R Int : 184 ms QRS Dur : 092 ms QT Int : 392 ms P-R-T Axes : 040 -09 -35 degrees QTc Int : 441 ms Normal sinus rhythm Nonspecific ST and T wave abnormality Abnormal ECG When compared with ECG of 14-SEP-2019 17:11, (unconfirmed) No significant change was found Confirmed by Jose Alfredo Puente ([id number]) on 09/15/2019 7:19:44 PM Referred By: REFERRED SELF Confirmed By:Estiven Puente
--- NOTE | 2019-09-15 19:22 | Electrocardiogram Report ---
Test Reason : Blood Pressure : / mmHG Vent. Rate : 066 BPM Atrial Rate : 066 BPM P-R Int : 180 ms QRS Dur : 088 ms QT Int : 404 ms P-R-T Axes : 013 -21 035 degrees QTc Int : 423 ms Normal sinus rhythm Nonspecific ST and T wave abnormality Abnormal ECG When compared with ECG of 15-SEP-2019 07:00, (unconfirmed) No significant change was found Confirmed by Jose Alfredo Puente ([id number]) on 09/15/2019 7:21:46 PM Referred By: REFERRED SELF Confirmed By:Estiven Puente
[2019-09-16] MEDS: PANTOprazole 40 MG TAB PO SCH (06:38)
[2019-09-16] MEDS ORDERED: CLOPIDOGREL BISULFATE 75 MG TAB PO SCH (09:00)
[2019-09-16] MEDS: METOPROLOL TARTRATE 25 MG TAB PO SCH ×2 (09:14→12:37)
--- NOTE | 2019-09-16 10:04 | Cardiology Progress Note ---
Date of Service September 16, 2019 Assessment & Plan (1) Non-ST elevated myocardial infarction (non-STEMI): (2) Hyperlipidemia: (3) Family history of premature CAD: The patient had an uneventful night. He will go home on dual antiplatelet therapy. I will plan follow-up through our office which will call him for an appointment. The patient was not started on atorvastatin by interventional cardiology. He has a low cholesterol on admission and perhaps that is why he was not begun on atorvastatin. He should have a lipid panel however, drawn as an outpatient before his cardiology follow-up. I would also place him on a long-acting metoprolol instead of having him take 4 doses a day. Subjective The patient had an uneventful night. All questions were answered. Review of Systems Review of Systems: All systems reviewed & are unremarkable except as noted in HPI & below Nothing additional to add. Physical Exam Physical Exam: General: no acute distress and stated age Head: normocephalic, no masses, lesions, tenderness or abnormalities Eyes: conjunctiva are pink and non-injected, sclera clear Neck: supple, no adenopathy, no bruits, normal jugular venous pulse, no hepatojugular reflux Chest: normal shape and normal respiratory effort Lungs: clear to auscultation and percussion Cardiac Exam: - regular rate & rhythm, no murmurs gallops or rubs - normal S1, normal S2 Pulses: 2(+) throughout Abdomen: abdomen soft, non-tender, no abnormal masses and no hepatosplenomegaly Musculoskeletal: no gait disturbance, no joint inflammation, no deforming arthritis Extremities: Cath site looks good Neuro: grossly normal exam Results & Data Vital Signs (Past 12 Hours) Vital Signs Temp Pulse Pulse Resp BP BP Pulse Ox 09/16/19 08:07 36.6 C 63 17 136/84 97 09/16/19 04:49 36.5 C 52 L 16 135/85 97 09/16/19 00:08 36.7 C 54 L 20 145/75 H 99 09/15/19 23:32 60 Laboratory Results Laboratory Results - last 24 hr 09/15/19 09/15/19 09:59 10:13 Activ Coag Time Kaolin 224 H 252 H Medications Administered Current Inpatient Medications Acetaminophen (Tylenol) 650 mg PO Q4H PRN PRN Reason: Pain or Fever Stop: 10/14/19 17:44 Al Hydrox/Mg Hydrox/Simethicone (Maalox) 15 ml PO Q4H PRN PRN Reason: Dyspepsia Stop: 10/14/19 17:44 Albuterol (Ventolin Hfa) 2 puffs INH Q4 PRN PRN Reason: SOB/WHEEZING Stop: 10/14/19 17:48 Aspirin (Ecotrin Ectab) 81 mg PO DAILY [facility] Stop: 10/15/19 08:59 Last Admin: 09/15/19 11:13 Dose: 81 mg Documented by: Clopidogrel Bisulfate (Plavix) 75 mg PO QAM [facility] Stop: 10/16/19 08:59 Magnesium Hydroxide (Milk Of Magnesia) 30 ml PO Q12H PRN PRN Reason: Constipation Stop: 10/14/19 17:44 Metoprolol Tartrate (Lopressor) 25 mg PO Q6 [facility] Stop: 10/14/19 17:59 Last Admin: 09/16/19 09:14 Dose: Not Given Documented by: Nitroglycerin (Nitrostat) 0.4 mg SL UD PRN PRN Reason: Chest Pain Stop: 10/14/19 17:44 Ondansetron HCl (Zofran) 4 mg IV Q6H PRN PRN Reason: Nausea Stop: 10/14/19 17:44 Pantoprazole [facility]) [facility] Stop: 10/15/19 06:29 Last Admin: 09/16/19 06:38 Dose: 40 mg Documented by:
[2019-09-16] MEDS: ASPIRIN 81 MG ECTAB PO SCH (10:14)
--- NOTE | 2019-09-16 11:04 | Hospitalist Progress Note ---
Date of Service September 16, 2019 Assessment & Plan (1) Non-ST elevated myocardial infarction (non-STEMI): Present to the ER from PCP office for substernal chest pain EKG revealed normal sinus rhythm with ST depression in leads II, V5 and V6. Received ASA 325 mg prior to arrival Troponin on admission 0.489, then peaked to 0.570 Starting on heparin drip ECHO showed no segmental LV wall motion abnormality with EF 55 to 60% Cardiology on board S/P cardiac cath showed a subtotal stenosis of the right coronary artery before the takeoff of the PDA. Successful PCI of right posterior AV branch and distal right PLB with 2 nonoverlapping drug-eluting stents (2.5 x 18, 2.25 x 12 Tobias) by Dr Carlson Heparin drip discontinued Continue dual-antiplatelet therapy for at least 1 year Continue statin and metoprolol referral to cardiac Rehab on discharge case discussed with cardiology that recommended to change metoprolol tartrate to metoprolol succinate 100mg daily Ok from cardiology standpoint to discharge home (2) Elevated blood pressure reading: BP improved Continue Metoprolol Continue Monitor BP (3) GERD (gastroesophageal reflux disease): continue PPI daily (4) Obesity: BMI 34.8 Counseling on diet and exercise (5) DVT prophylaxis: Heparin IV drip discontinued Disposition: Discharge home today Follow up with your PCP Dr. Lema on 09/17 @ 10:45 am Admission and Anticipated Discharge Date Admission Date: September 14, 2019 Subjective Pt was seen and examined Lying in bed with no distress Pt said that he feels fine He said that he walked around with no distress Denies any chest pain, palpitation, dizziness and SOB Physical Exam Physical Exam: General- No acute distress Head- atraumatic Eyes- PERRL, EOMI, ENT- oropharynx clear Neck- supple, no JVD Lungs- clear to auscultation Heart- regular rhythm; no murmur Abdomen- normal bowel sounds, soft, nontender Extremities- no calf tenderness, no hematoma in right wrist Neuro- alert, oriented x 3; PERRL, EOMI; no facial palsy; no dysarthria Skin- warm & dry Results & Data Results & Data ([facility]) Vital Signs (Past 12 Hours) Vital Signs Temp Pulse Pulse Resp BP BP Pulse Ox 09/16/19 08:07 36.6 C 63 17 136/84 97 09/16/19 08:00 53 L 06/20/20 04:49 36.5 C 52 L 16 135/85 97 09/16/19 00:08 36.7 C 54 L 20 145/75 H 99 09/15/19 23:32 60
--- NOTE | 2019-09-16 11:31 | Electrocardiogram Report ---
Test Reason : Blood Pressure : / mmHG Vent. Rate : 056 BPM Atrial Rate : 056 BPM P-R Int : 174 ms QRS Dur : 076 ms QT Int : 440 ms P-R-T Axes : 044 -09 -57 degrees QTc Int : 424 ms Sinus bradycardia Septal infarct , age undetermined Abnormal ECG When compared with ECG of 15-SEP-2019 12:26, T wave inversion now evident in Inferior leads T wave inversion now evident in Anterolateral leads Confirmed by Dnate Nugent ([id number] on 09/16/2019 11:31:06 AM Referred By: REFERRED SELF Confirmed By:Dante Nugent
--- NOTE | 2019-09-17 09:05 | Discharge Summary ---
Date of Service September 16, 2019 Admission HPI Per Admitting Provider This is a 54-year-old male with significant past medical history of asthma, GERD, obesity, hyperlipidemia, family history of premature cardiac who presents to ED with complaints of substernal chest pain x1.5 weeks. Approximately a week and a half ago he began noticing burning substernal chest pain that would worsen with exertion. He specifically noticed when bending over, out doing yard work and also when out walking. These episodes are also associated with GERD. He does have prior history of GERD in which he takes Pepcid as needed. This burning sensation feels different than his reflux. Pain would worsen with exertion and resolve with rest. No radiation of sx. He did try taking omeprazole 20 mg daily for the past 4 days without significant improvement. His last episode of chest pain was this morning when walking upstairs to PCP office. While in PCP office he underwent EKG which revealed concerning changes and therefore he was referred to ED. He was given full- strength aspirin while in office. Chest pain subsided when he was resting in office. Pain is not affected with certain movements, not made worse with deep breathing, is not associated with shortness of breath, nausea or diaphoresis. He denies any recent illness, fever, chills, sweats, lightheadedness, dizziness, syncope, COLLINS, shortness breath, hemoptysis, cough, nausea, vomiting, abdominal pain, change in bowel or urinary habits. He denies any prior history of cardiac disease but notes mother at age 36 of [place] in paternal grandfather [place] in 50s. He denies any tobacco, nicotine, alcohol or drug use. He does have prior history of hyperlipidemia but has not been prescribed medication. He also elicits elevated blood pressure when in PCPs office, but feels related to "nervousness." Denies exposure to covid-19, change in taste/smell. In ED patient remained hemodynamically stable, mildly hypertensive 148/78. Lab work notable for elevated troponin point 0.489 but otherwise CBC, CMP, lipase unremarkable. Chest x-ray without acute cardiopulmonary abnormality. EKG revealed normal sinus rhythm with ST depression in leads II, V5 and V6. He did receive ASA 325mg prior to arrival. He is chest pain free in ED. Admission Exam Per Admitting Provider Constitutional: WD/WN, obese, male, vitals as above, NAD, sitting up in bed, pleasant, conversing easily Head: Normocephalic, Atraumatic Eyes: PERRL, conjunctivae normal, anicteric sclerae ENMT: external ear and nose normal, oropharynx normal Neck: trachea midline, no thyromegaly normal visual inspection Respiratory: normal respiratory effort, lungs clear to auscultation, no wheeze, rales, rhonchi. Normal insp/exp effort, no accessory muscle use Cardiovascular: RRR, no murmur, no edema Vessels: no JVD or carotid bruit Chest: normal inspection of chest, no pain to palpation of chest wall Abdomen: Protuberant abdomen, normal bowel sounds, soft, nontender, no hepatosplenomegaly Musculoskeletal: no cyanosis or clubbing, extremities motor strength 5/5 Skin: no rashes, warm and dry normal turgor Neurologic: PERRL, EOMI, accommodation nl, no face palsy, no dysarthria CN's II-XI intact bilaterally and moves all extremities Psychiatric: A+Ox3, euthymic affect Lymphatic: no cervical or axillary lymphadenopathy : deferred Principal Diagnosis Non-ST elevated myocardial infarction (non-STEMI) Elevated blood pressure reading GERD (gastroesophageal reflux disease) Discharge Exam General- No acute distress Head- atraumatic Eyes- PERRL, EOMI, ENT- oropharynx clear Neck- supple, no JVD Lungs- clear to auscultation Heart- regular rhythm; no murmur Abdomen- normal bowel sounds, soft, nontender Extremities- no calf tenderness, no hematoma in right wrist Neuro- alert, oriented x 3; PERRL, EOMI; no facial palsy; no dysarthria Skin- warm & dry Discharge Data Allergies Allergy/AdvReac Type Severity Reaction Status Date / Time No Known Allergies Allergy Unverified 09/14/19 15:56 Consultations 09/14/19 15:27 ED Decision to Admit Stat 09/14/19 15:36 Consult Cardiology Routine 09/15/19 08:00 Consult Cardiac Catheterization Routine 09/15/19 10:33 Consult Cardiac Rehabilitation Routine Procedures Performed Operation Date: 09/15/19 10:30 Actual Procedures s Cineradiography w/Routine Exam - DO cindy Bustamante Cath, Coronaries ONLY (no LV) - DO chicho Bustamante Drug Eluting Stent SGl Vessel - Lyle Carlson MD Ordered Studies 09/15/19 06:46 CL Cath Imgs for PACS use only Routine XR chest 1V portable CLINICAL HISTORY: Chest pain. COMPARISON STUDY: No previous studies for comparison. FINDINGS: Lung volumes are normal. There is no consolidation to suggest pneumonia. Minimal linear left basilar opacity suggests atelectasis. There is no pneumothorax or pleural effusion. Cardiac size is normal. Mediastinal contours are normal. There is no evidence for pulmonary edema. IMPRESSION: No acute cardiopulmonary findings. ACT 112: Negative or not required by law. Electronically signed by: Joseph Mcdonald M.D. 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 Clinical evaluation leading to the procedure CAD Presenation: Non STEMI Anginal Classification: CCS IV Heart Failure: No Cardiogenic Shock within 24 Hours: No Cardiac Arrest within 24 Hours: No Imaging Studies Past 6 Months: Yes Stress Studies Past 6 Months: No Diagnostic Physicians Name: Jose Alfredo Carlson MD Closure Device Percutaneous Entry Location: Radial Closure Device: Radial Band Recommendations: PCI without planned CABG PCI Indication: PCI for high risk Non-EUNICE Lesion Segment Name: R-PAV Culprit Artery: Yes Stenosis Prior to Rx (%): 95 Chronic Total Occlusion: No IVUS: No FFR: No Pre-Procedure GRETEL Flow: 2 Previously Treated Lesion: No Lesion Complexity: Non-High/Non-C Lesion Length (mm): 15 Thrombus Present: No Bifurcation Lesion: Yes Guidewire Across Lesion: Stenosis Post-Procedure (%): 0 Post-Procedure GRETEL Flow: 3 Devices(s) Deployed: Yes Yes Lesion #2 Segment Name: R PLB Culprit Artery: No Stenosis Prior to Rx (%): 70 Chronic Total Occlusion: No IVUS: No FFR: No Pre-Procedure GRETEL Flow: 3 Previously Treated Lesion: No Lesion Complexity: Non-High/Non-C Lesion Length (mm): 10 Thrombus Present: No Bifurcation Lesion: No Guidewire Across Lesion: Yes Post-Procedure GRETEL Flow: 3 Devices(s) Deployed: Yes Intraprocedure Events Significant Disection: No Perforation: No Cardiac Cath Procedure Full Procedure Date September 15, 2019 Pre-Procedure Diagnosis Pre-Procedure Diagnosis: Non STEMI AUC Score AUC Score: 8 Post-Procedure Diagnosis Post-Procedure Diagnosis: Severe CAD and Successful PCI Procedure(s) Performed Procedure(s) Performed: Drug Eluting Stent Spooling Machine Operator Jose Alfredo Carlson MD Tunnel Elastic Operator Chainstitch(s) Santiago Estimated Blood Loss Estimated Blood Loss: 10 Medication(s) Medication(s): Clopidogrel, Fentanyl, Heparin, Lidocaine 1%, Nicardipine, Nitroglycerin and Versed Summary of Findings Indication: Acute coronary syndrome Access: 6 Fr right radial artery Catheters: JR4 guide Findings: For full details of patient's coronary angiography please see cath report dictated by Dr. Landers. Briefly, patient found to have severe single vessel disease involving his distal RCA, right posterior AV branch into large right PLB. Decision to proceed with PCI. -- PCI -- Antithrombotic therapy: Heparin, clopidogrel Procedure: RCA cannulated with JR4 guide Heat Treat Puller 50 wire passed across lesion into distal vessel Right PAV lesion predilated with 2.0 compliant balloon Dilated lesion stented with 2.5 x 18 mm Tobias drug-eluting stent Stent post-dilated with 2.75 noncompliant balloon IC vasodilators administered for spasm Severe residual stenosis in proximal right PLB remained. Proximal right PLB stented with 2.25 x 12 mm Hurley Stent postdilated with stent balloon Post procedure GRETEL 3 flow, stents well expanded with minimal residual stenosis and no apparent cardiac complications. Arterial Closure: TR band Summary: 1. Successful PCI of right posterior AV branch and distal right PLB with 2 nonoverlapping drug-eluting stents (2.5 x 18, 2.25 x 12 Tobias). 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 Any exceptions are noted below. [facility] Card Cath Procedure Codes Moderate Sedation Procedure 1: Sedation/Anesthesia: 68489 Mod Sedation by a different physician ;Init15 Min Child Age 5&Up Procedure 2: Sedation/Anesthesia: 74715 Mod Sedation by a different physician;Ea Additional 15 Minutes Stenting Procedure 1: Cardiovascular Stent Procedures: 39843 Perc transcatheter placement of intracoronary stent(s), with ang PG Care Time/CCT Total # of Minutes Spent Total Time Spent with Patient: Total time spent is greater than 50% in coordination of care (as documented) at patient's floor/unit and/or counseling patient: Signed By:<Electronically signed by Lyle Carlson MD>{f rep sign date/time1] Created/Dictated: 09/15/19 1023 Transcribed: 09/15/19 1023 Hospital Course (1) Non-ST elevated myocardial infarction (non-STEMI): Present to the ER from PCP office for substernal chest pain EKG revealed normal sinus rhythm with ST depression in leads II, V5 and V6. Received ASA 325 mg prior to arrival Troponin on admission 0.489, then peaked to 0.570 Starting on heparin drip ECHO showed no segmental LV wall motion abnormality with EF 55 to 60% Cardiology on board S/P cardiac cath showed a subtotal stenosis of the right coronary artery before the takeoff of the PDA. Successful PCI of right posterior AV branch and distal right PLB with 2 nonoverlapping drug-eluting stents (2.5 x 18, 2.25 x 12 Hurley) by Dr Carlson Heparin drip discontinued Continue dual-antiplatelet therapy for at least 1 year Continue statin and metoprolol referral to cardiac Rehab on discharge case discussed with cardiology that recommended to change metoprolol tartrate to metoprolol succinate 100mg daily Ok from cardiology standpoint to discharge home (2) Elevated blood pressure reading: BP improved Continue Metoprolol Continue Monitor BP (3) GERD (gastroesophageal reflux disease): continue PPI daily (4) Obesity: BMI 34.8 Counseling on diet and exercise (5) DVT prophylaxis: Heparin IV drip discontinued Disposition: Discharge home today Follow up with your PCP Dr. Lema on 09/17 @ 10:45 am Total Time Total Time Spent Total Time Spent (In Minutes): 35 minutes Total Time Includes: Examination of the Patient, Discharge Planning, Medication Reconciliation, Communication With Other Providers and Other Discharge Plan Discharge Items Patient Disposition: Home - Self-Care Reason For Visit: NSTEMI Discharge Diagnosis: Non-ST elevated myocardial infarction (non-STEMI) Elevated blood pressure reading GERD (gastroesophageal reflux disease) Activity: As commented below Non-emergency contact: Primary Care Provider and Spooling Machine Operator Call non-emergency contact if: you have any medication questions Follow-up/Referrals: PT,DECLINED [Primary Care Provider] - Diet: Heart Healthy Addtl Attending Provider Instructions: Follow up with your primary care provider Dr. Lema on 09/17 @ 10:45 AM Follow up with cardiology in 2 weeks (office will call you for the appointment) Continue dual antiplatelet therapy with aspirin and plavix for at least 1 year Avoid any NSAIDS therapy such as (Motrin, aleve, Naproxen, Ibuprofen, Celebrex, ...) Monitor for any abnormal bleeding and seek medical attention if bleeding occurs Your physician will refer you to cardiac rehab Check Liver enzymes in 2 weeks since starting on cholesterol agent Keep the area for the cardiac cath clean and dry to avoid any infection Do not use creams, lotions or ointment on the wound site Do not take a bath, tub soak, go in a Jacuzzi, or swim in a pool or sandhu for one week after the procedure. Do not participate in strenuous activities for 3 days after the procedure. Gradually increase your activities until you reach your normal activity level within two days after the procedure. Avoid heavy lifting (more than 10 pounds) and pushing or pulling heavy objects for the first 5 days after the procedure. Pending Studies at Discharge: No Stand-Alone Forms: My [facility] [employer] Consumer Portals, Smoking Cessation Medications and DC Order Prescriptions: New clopidogrel 75 mg Tablet 75 mg PO QAM Qty: 30 RF: 0 nitroglycerin [Nitrostat] 0.4 mg Tablet, Sublingual 0.4 mg sublingual UD PRN (Reason: chest pain) Qty: 30 RF: 0 aspirin 81 mg Tablet,Delayed Release (Dr/Ec) 81 mg PO DAILY Qty: 30 RF: 0 atorvastatin 40 mg tablet 40 mg PO DAILY Qty: 30 RF: 0 metoprolol succinate 100 mg tablet extended release 24 hr 100 mg PO DAILY Qty: 30 RF: 0 Continued Flovent HFA 220 mcg/actuation Hfa Aerosol Inhaler 1 puff INHALATION WK RF: 0 albuterol sulfate [ProAir HFA] 90 mcg/actuation Hfa Aerosol Inhaler 2 puff INHALATION Q4 PRN (Reason: ASTHMA) RF: 0 omeprazole 20 mg Capsule,Delayed Release(Dr/Ec) 20 mg PO DAILY RF: 0 clindamycin phosphate [Clindagel] 1 % Gel, Once Daily 1 applic TOPICAL DAILY PRN (Reason: Acne) RF: 0 Discontinued ibuprofen 600 mg Tablet 600 mg PO TID PRN (Reason: Pain) RF: 0 Discharge Orders: Discharge Order (Routine); Ordered 09/16/19 Ordered By: Xander Oates Admission Data Admit Date/Time: 09/14/19 15:36 Attending Provider: Xander Oates Admit Provider: Jack Meeks Primary Care Provider: PT,DECLINED Other Providers: Ran Duarte ; Frank Landers ; Jack Meeks Other Interventions: Discharge Summary Assessment (RN) Last Done: 09/16/19 12:13 DC Date/Time DO NOT enter until pt leaves facility: 09/16/19 12:49
== END 2019-09-16 12:49 | disposition home or self-care (01) | DRG 247 ==
LOC: ED 13:58 → 2S 15:36 → SUATTDRO 15:36 → 2S 17:12
PROC: CLB.CCO (2019-09-15 10:30)